=== PATIENT | female | born 1975 | race Two or more races ===

== ENCOUNTER 2018-01-15 14:43 | Outpatient (CLI) | payer OTHER ==
[~2018-01-15 14:43] MED LIST: FOLIC ACID0.4 MG; PRENATABS FA TA1 TAB
== END 2018-01-15 14:55 | disposition home or self-care (01) ==
LOC: SONOGRAMA 14:43
DX: N61.0 Mastitis without abscess (principal); N60.11 Diffuse cystic mastopathy of right breast; N60.12 Diffuse cystic mastopathy of left breast

== ENCOUNTER 2018-01-19 11:37 | Outpatient (CLI) | payer OTHER | END 2018-01-19 11:48 | disposition home or self-care (01) | LOC: SONOGRAMA 11:37 | DX: N60.11 Diffuse cystic mastopathy of right breast (principal); N60.12 Diffuse cystic mastopathy of left breast ==

== ENCOUNTER 2018-01-19 15:23 | Outpatient (CLI) | payer OTHER | END 2018-01-19 15:29 | disposition home or self-care (01) | LOC: LAB 15:23 | DX: N61.1 Abscess of the breast and nipple (principal) ==

== ENCOUNTER 2019-05-04 14:00 | Outpatient (CLI) | payer OTHER | END 2019-05-04 14:44 | disposition home or self-care (01) | LOC: SONOGRAMA 14:00 | DX: N61.0 Mastitis without abscess (principal); N60.11 Diffuse cystic mastopathy of right breast; N60.12 Diffuse cystic mastopathy of left breast ==

== ENCOUNTER 2020-05-25 11:43 | Outpatient (CLI) | payer OTHER | END 2020-05-25 12:01 | disposition home or self-care (01) | LOC: SONOGRAMA 11:43 | DX: D49.3 Neoplasm of unspecified behavior of breast (principal); D24.9 Benign neoplasm of unspecified breast; D24.2 Benign neoplasm of left breast ==

== ENCOUNTER 2020-06-12 12:25 | Outpatient (CLI) | payer OTHER | END 2020-06-12 14:22 | disposition home or self-care (01) | LOC: SONOGRAMA 12:25 | PROVIDERS: ATTEND Pathology Anatomic Pathology & Clinical Pathology | DX: N60.11 Diffuse cystic mastopathy of right breast (principal); N64.59 Other signs and symptoms in breast ==

== ENCOUNTER 2021-09-11 14:22 | Outpatient (CLI) | payer OTHER | END 2021-09-11 14:26 | disposition home or self-care (01) | LOC: LAB 14:22 | DX: Z20.828 Contact with and (suspected) exposure to other viral communicable diseases (principal); Z20.822 Contact with and (suspected) exposure to COVID-19; Z11.52 Encounter for screening for COVID-19 ==